=== PATIENT | female | born 1995 | race Caucasian/White ===

== ENCOUNTER 2023-05-10 18:44 | Emergency (ER) | payer SELFPAY ==
[~2023-05-10] VITALS: Ht 167 cm; Wt 55.0 kg
[~2023-05-10 18:44] MED LIST: ACET-11 PO; ACHD5005 PO; FERR325T18 PO; IBUP-1773 PO; PREN-93 PO
[2023-05-10 18:52] VITALS: BP 124/86
--- NOTE | 2023-05-10 18:58 | ED Lower Extremity ---
General Chief Complaint: Lower Extremity Stated Complaint: RT ANKLE/FOOT PAIN Source: patient Exam Limitations: no limitations History of Present Illness Date Seen by Provider: May 10, 2023 Time Seen by Provider: 18:55 Initial Comments Patient is a 28-year-old female who presents ED with injury to her right lower ankle. This occurred around 12:00 today. She states that a log rolled off a truck hitting the back of her foot. This resulted in a laceration above her Achilles. She is having difficulty bearing weight. Does have crutches at home which she has been using. Not up-to-date on her tetanus within the past 5 years. She does report not range of motion intact. Denies of any pain on the top of her foot. She took anti-inflammatories at home. Difficulty bearing weight. Denies fever, chills, nausea, vomiting, diarrhea. Allergies and Home Medications Allergies Coded Allergies: No Known Drug Allergies (Unverified , 01/15/15) Patient Home Medication List Home Medication List Reviewed: Yes Acetaminophen with Codeine (Acetaminophen-Cod #3 Tablet) 1 Each Tablet, 1-2 TAB PO Q4H PRN for MODERATE TO SEVERE PAIN Prescribed by: KRISTEL FARAH on 05/04/16 1043 Cephalexin (Cephalexin) 500 Mg Tablet, 500 MG PO QID Prescribed by: FREDDIE GELLER on 05/10/231913 Ferrous Sulfate (Ferrous Sulfate) 325 Mg Tablet, 325 MG PO DAILY@08 Prescribed by: KRISTEL FARAH on 05/04/16 1043 Ibuprofen (Ibuprofen) 600 Mg Tablet, 600 MG PO Q6H Prescribed by: KRISTEL FARAH on 05/04/16 1043 Naproxen (Naproxen) 500 Mg Tablet, 500 MG PO Q12H Prescribed by: FREDDIE GELLER on 05/10/231913 Pnv95/Ferrous Fumarate/FA ( Multivitamins Tablet) 1 Each Tablet, 1 EACH PO DAILY PRN for ABDOMINAL PAIN, (Reported) Entered as Reported by: LORENA GAYLE on 01/15/15 0242 Review of Systems Constitutional: No chills, No diaphoresis EENTM: No ear pain, No blurred vision, No double vision Respiratory: No cough, No dyspnea on exertion Cardiovascular: No chest pain Gastrointestinal: No abdominal pain, No diarrhea, No nausea, No vomiting Genitourinary: No decreased output Musculoskeletal: No back pain; joint pain, muscle pain, muscle stiffness Skin: change in color All Other Systems Reviewed Negative Unless Noted: Yes Past Yiiparu-Iuobzw-Fpzcfr Hx Seasonal Allergies Seasonal Allergies: No Past Medical History Reproductive Disorders: No Female Reproductive Disorders: Denies Adverse Reaction/Blood Tranf: No Family Medical History FH: pancreatic cancer grandmother Thyroid disease 19 MOTHER grandmother Physical Exam Vital Signs Vital Signs - First Documented 05/10/23 18:52 Temp 37.7 Pulse 78 Resp 16 B/P (MAP) 124/86 (99) Pulse Ox 99 O2 Delivery Room Air Capillary Refill : Height, Weight, BMI Height: 5'6.00" Weight: 155lbs. 0.8oz. [id number]; 25.0 BMI Method: General Appearance: WD/WN, no apparent distress HEENT: PERRL/EOMI, normal ENT inspection, TMs normal, pharynx normal Neck: non-tender, full range of motion, supple Cardiovascular: regular rate, rhythm, no edema, no gallop, no JVD Respiratory: chest non-tender, lungs clear, normal breath sounds, no respiratory distress, no accessory muscle use Gastrointestinal: normal bowel sounds, non tender, soft, no organomegaly Back: normal inspection, no CVA tenderness, no vertebral tenderness Knees: bilateral knee non-tender, bilateral knee normal inspection, bilateral knee normal range of motion Ankles: right ankle other (2 cm laceration behind the right posterior ankle. Dorsiflexion plantarflexion intact. No tenderness to the calcaneus.) Neurologic/Psychiatric: rehabilitation team lead II-XII nml as tested, no motor/sensory deficits, alert, normal mood/affect, oriented x 3 Skin: other (2 cm laceration to the right posterior ankle. Adipose involvement.) Procedures/Interventions Wound Location: Lower Extremities Other Wound Location right posterior ankle Wound Length (cm): 2 Wound's Depth, Shape: superficial, sub Q Wound Explored: clean Irrigated w/ Saline (ccs): 300 Betadine Prep?: Yes Anesthesia: 1% Lidocaine Volume Anesthetic (ccs): 4 Suture: Ethlion Suture Size: 3-0 Number of Sutures: 4 Layer Closure?: 1 Sterile Dressing Applied?: Yes Progress/Results/Core Measures Results/Orders My Orders Orders - ALVES,SCAR A PA Ankle, Right, 3 Views (05/10/23 18:54) Dipht/Pertuss(Acell)/Tet Adult (Dipht/Pe (05/10/23 19:00) Lidocaine 1% Inj 20 Ml (Xylocaine 1% Inj (05/10/23 19:00) Medications Given in ED Current Medications Medications Dose Ordered Sig/Corby Route Start Time Stop Time Status Last Admin Dose Admin Diphtheria/ Tetanus/Acell Pertussis 0.5 ml ONCE ONCE IM 05/10/23 19:00 05/10/23 19:01 DC 05/10/23 19:08 0.5 ML Lidocaine HCl 20 ml ONCE ONCE INJ 05/10/23 19:00 05/10/23 19:01 DC 05/10/23 19:09 20 ML Vital Signs/I&O 05/10/23 18:52 Temp 37.7 Pulse 78 Resp 16 B/P (MAP) 124/86 (99) Pulse Ox 99 O2 Delivery Room Air Departure Communication (PCP) Patient with a laceration to her right posterior ankle. Log rolled off the bed of the truck hitting her lower leg resulting in 2 similar laceration. Difficulty bearing weight. She does have crutches. Has been taking anti- inflammatories. Not up-to-date on her tetanus. She was given a tetanus shot. Laceration with extensive irrigation with Shur-Clens. Four 3-0 Ethilon sutures were placed here in the ED. Moving 10 days. Topical Neosporin bandage over the wound. Discussed wound care. Obtained x-ray which did not note any fracture or foreign body. Will discharge with Keflex prophylactically due to the location and area of the laceration above the Achilles tendon. There appears to be no Achilles tendon involvement. Normal active range of motion of the right ankle. Continue wearing the crutches. Tobi wrap for support. Remove sutures in 10 days. If increased redness or swelling to return back to ED. Follow-up your PCP 4 to 5 days for reevaluation. Impression Primary Impression: Laceration Disposition: HOME, SELF-CARE Condition: Stable Departure-Patient Inst. Decision time for Depature: 18:57 Referrals: KRISTEL FARAH DO (PCP/Family) Primary Care Physician Patient Instructions: Laceration Repair With Stitches ED Scripts Naproxen (Naproxen) 500 Mg Tablet 500 MG PO Q12H for 10 Days, #20 TAB Prov: SCAR ALVES 05/10/23 Cephalexin (Cephalexin) 500 Mg Tablet 500 MG PO QID for 7 Days, #28 TAB Prov: SCAR ALVES 05/10/23 SCAR ALVES May 10, 2023 18:58
[2023-05-10] MEDS ORDERED: Tetanus/Diphtheria/Pertussis (Acell) ADULT Vaccine 0.5 ML IM ONE (19:00)
[2023-05-10] MEDS ORDERED: LIDOCAINE 1% INJ 20 ML VIAL INJ ONE (19:00)
[2023-05-10] MEDS ORDERED: CEPH500T PO (19:14)
[2023-05-10] MEDS ORDERED: NAPR-915 PO (19:14)
--- NOTE | 2023-05-10 19:16 | Diagnostic Imaging Report ---
INDICATION: Injury, laceration, pain. EXAMINATION: Ankle, 05/10/2023. FINDINGS: 3 views of the ankle. There is a focal lucency in the posterior aspect of the ankle, likely the known laceration. No radiopaque foreign body is appreciated. Achilles tendon appears present but a partial tear not excluded with radiographs. The underlying osseous structures intact with no fracture or dislocation. IMPRESSION: Soft tissue abnormality in posterior aspect of the ankle, see above discussion. No radiopaque foreign body or fracture. Dictated by: Dictated on workstation # [id number]
== END 2023-05-10 19:35 | disposition home or self-care (01) ==
LOC: EDUNIT# 18:44 → ER 18:47
DX: S91.011A Laceration without foreign body, right ankle, initial encounter (principal); Z23 Encounter for immunization; W22.8XXA Striking against or struck by other objects, initial encounter
CPT/HCPCS: 73610; 90471; 90715